=== PATIENT | female | born 1970 | race Two or more races ===

== ENCOUNTER 2017-10-26 07:35 | Day surgery (SDC) | END 2017-10-26 14:12 | disposition home or self-care (01) ==

== ENCOUNTER 2019-06-11 12:26 | Day surgery (SDC) | payer BC, OTHER ==
[~2019-06-11] VITALS: Ht 157.5 cm; Wt 70.3 kg
[~2019-06-11 12:26] MED LIST: HYOSCYAMINE; OMEPRAZOLE; PANTOPRAZOLE
[2019-06-11 17:16] VITALS: BP 109/62; PULSE 54; RESP 16
== END 2019-06-11 17:40 | disposition home or self-care (01) ==
LOC: GIL 12:26
PROVIDERS: ATTEND Internal Medicine Gastroenterology
DX: K29.30 Chronic superficial gastritis without bleeding (principal)
CPT/HCPCS: 43239; 84703; J3010; Z7610; 88305; 88312; 88313